=== PATIENT | female | born 1955 | race Caucasian/White ===

== ENCOUNTER 2018-11-30 10:19 | Emergency (ER) | payer MEDICARE, BC ==
[2018-11-30] MEDS ORDERED: Albuterol/Ipratropium 3.0-0.5 MG/3 ML Neb Soln NEB ONE (10:52)
--- NOTE | 2018-11-30 10:52 | EDM.PDOC ---
ED HPI GENERAL MEDICAL PROBLEM - General Chief Complaint: Respiratory Problem Stated Complaint: [facility] Time Seen by Provider: 11/30/18 10:45 Source of Information: Reports: Patient History Limitations: Reports: No Limitations - History of Present Illness INITIAL COMMENTS - FREE TEXT/NARRATIVE: 63-year-old female presents to the ED per [facility]. She reports she felt like she got a cold on Friday, November 27. The phlegm that she was bringing up was for the most part clear in turn perhaps a little bit tannish in color yesterday and little bit thicker. Slept hardly much at all last night due to dyspnea and wheezing. She has a hand-held nebulizer which helped a little. Paramedics report when they arrived on scene they found her O2 sats to be 52%. She was blue in color or generalized cyanotic. Patient has a history of COPD and continues to smoke a pack of cigarettes daily. Not have a home nebulizer does not use home oxygen therapy. On 4 L of oxygen by nasal cannula she is 83% O2 sats. Still working fairly hard to breathe. She states she got a lot better after the albuterol neb treatment at the paramedics provided. She denies any hemoptysis. She doesn't think she's ever had pneumonia before. She is aware that she has fever and chills the last 2 days. Up titrate is been very poor the last 2 days. She feels a bit more hungry now but feels like her abdomen is swollen up and bloated. Denies any diarrhea or vomiting. Onset: Gradual Onset Date: 11/27/18 (Gradually worsening dyspnea cough and shortness of breath. ) Duration: Day(s):, Constant, Getting Worse Location: Reports: Chest (Dyspnea with shortness of breath.) Quality: Reports: Other Severity: Severe (Severe shortness of breath with wheezing) Improves with: Reports: None Worsens with: Reports: Movement (Worse with movement and severe coughing jags.) Context: Reports: Other (Feels like she caught a cold 3 days ago in her chest which is made her very congested and difficulty getting her air.). Denies: Activity, Exercise, Lifting, Sick Contact, Trauma Associated Symptoms: Reports: Chest Pain, Cough (Central chest from coughing so much.), cough w sputum (Mostly clear sputum but occasionally thick and tannish in color.), Fever/Chills ( Mom says), Headaches ( the last 2 days. ), Loss of Appetite ( mild headache), Malaise, Shortness of Breath, Weakness. Denies: Confusion, Diaphoresis, Nausea/Vomiting, Rash, Seizure, Syncope Treatments STAFF OCCUPATIONAL THERAPIST: Reports: Other (see below) (None other than some over-the- counter preparations for cough and cold.) Left Chest Pain Score (Numeric/FACES): 4 - Related Data Allergies Allergy/AdvReac Type Severity Reaction Status Date / Time No Known Allergies Allergy Verified 11/30/18 10:32 Home Meds: Home Meds Celecoxib [CeleBREX] 200 mg PO BID 12/02/13 [History] DULoxetine [Cymbalta] 60 mg PO DAILY 12/02/13 [History] Montelukast [Singulair] 10 mg PO DAILY 12/02/13 [History] amLODIPine [Norvasc] 10 mg PO DAILY 12/02/13 [History] atorvaSTATin [Lipitor] 40 mg PO BEDTIME 12/02/13 [History] hydroCHLOROthiazide [Hydrochlorothiazide] 12.5 mg PO DAILY 12/02/13 [History] Albuterol [Ventolin HFA] 1 - 2 puff INH ASDIRECTED PRN 11/30/18 [History] Calcium Citrate/Vitamin D3 [Citracal + D Maximum Caplet] 1 tab PO BID 11/30/18 [ History] Multivitamin [Multiple Vitamins] 2 tab PO DAILY 11/30/18 [History] Past Medical History HEENT History: Reports: Allergic Rhinitis (Allergic conjunctivitis.), Sinusitis , Other (See Below) Cardiovascular History: Reports: High Cholesterol, Hypertension Respiratory History: Reports: Bronchitis, Recurrent, COPD Endocrine/Metabolic History: Reports: Osteoporosis Social & Family History - Tobacco Use Smoking Status *Q: Current Every Day Smoker Tobacco Use Within Last Twelve Months: Cigarettes Years of Tobacco use: 42 - Tobacco Core Measures Tobacco Use/Smoking 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 Denies: Pleuritic Chest Pain, Hemoptysis (Tennis colored sputum) Cardiovascular: Reports: Chest Pain, Blood Pressure Problem (From coughing central upper chest.), Dyspnea on Exertion (Trace edema both lower extremities) , Edema. Denies: Claudication, Lightheadedness, Orthopnea Endocrine: Reports: Fatigue GI/Abdominal: Reports: Abdominal Pain (Feels abdominally bloated. This is from aerophagia.), Decreased Appetite. Denies: Constipation, Diarrhea, Difficulty Swallowing, Distension, Flatus, Hematemesis, Hematochezia, Melena, Mucous in Stool, Nausea : Reports: Frequency Musculoskeletal: Reports: Back Pain, Joint Pain (Knee pain at times) Skin: Reports: No Symptoms Neurological: Reports: No Symptoms Psychiatric: Reports: No Symptoms Hematologic/Lymphatic: Reports: No Symptoms Immunologic: Reports: No Symptoms ED EXAM, GENERAL - Physical Exam Exam: See Below Exam Limited By: Respiratory Distress (Marked respiratory distress.) General Appearance: Alert, Moderate Distress, Other (Temperature 36.7. She feels warmer than this on palpation. Pulse is 91 and sinus respiratory is 18 sats are 83% on room air. BP is 04/04/65.) Eye Exam: Bilateral Eye: Normal Inspection Ears: Normal TMs Throat/Mouth: Normal Inspection, Normal Oropharynx, Other Head: Atraumatic (Tongue is very dry and coated.), Normocephalic Neck: Normal Inspection, Supple, Non-Tender, Full Range of Motion. No: Carotid Bruit, Lymphadenopathy (L), Lymphadenopathy (R) Respiratory/Chest: No Accessory Muscle Use, Chest Non-Tender, Respiratory Distress (Severe respiratory distress with sats of 183% on room air.), Rhonchi, Wheezing (Rhonchi throughout all lung valdovinos. Artery wheezes from both lung bases.). No: Lungs Clear, Normal Breath Sounds, Crackles, Rales Cardiovascular: Regular Rate, Rhythm, No Gallop, No Murmur, No Rub. No: No Edema Peripheral Pulses: 2+: Posterior Tibial (L), Posterior Tibial (R), Dorsalis Pedis (L), Dorsalis Pedis (R) GI/Abdominal: Distended (Bowel sounds are mildly hyperactive in all 4 quadrants. Diffusely distended and tympanitic to percussion upper abdomen compatible with aerophagia.), Abnormal Bowel Sounds, Other (Abdomen is firm to palpation as it is filled with air. Unable to palpate any obvious organomegaly.) Back Exam: Normal Inspection, Full Range of Motion. No: CVA Tenderness (L), CVA Tenderness (R) Extremities: Normal Range of Motion, Non-Tender, Pedal Edema (Trace pedal edema bilaterally.) Neurological: Alert, Oriented, CN II-XII Intact, Normal Cognition Psychiatric: Normal Affect, Normal Mood Skin Exam: Warm, Dry, Intact, Normal Color, No Rash. No: Cyanosis ED RESPIRATORY PROCEDURES - Endotracheal Intubation Time of Intubation: 14:19 ET Intubation Indication: Respiratory Failure Preparation: Suction, Balloon Tested, BVM Set Up, Difficult Airway Equip Airway Assessment: Obese, Large Tongue Pre-Oxygenation: Assisted with BVM, 100% FiO2 Anesthesia Meds: Etomidate (22 mg), Lidocaine (100 mg), Midazolam (2 mg), Succinylcholine (100 mg), Vecuronium (8 mg) Placement: Orotracheal Cords Visualized: Grade 2 Number of Attempts: 1 Confirmed By: CO2 Indicator, Bilateral Breath Sounds, Chest Xray Tube Secured By: By RT EKG INTERPRETATION EKG Date: 11/30/18 Time: 10:30 Rhythm: NSR Rate (Beats/Min): 90 Parker: Normal P-Wave: Enlarged (Left atrial hypertrophy pattern.) QRS: Other (Q waves V1 to V3 compatible with an old large anteroseptal myocardial infarction.) ST-T: Depressed (Mild ST segment depression leads 2 and aVF and V6.) QT: Prolonged (Minimally prolonged) EKG Interpretation Comments: Abnormal ECG Course - Vital Signs Last Recorded V/S: Last Vital Signs Temp 36.7 C 11/30/18 10:26 Pulse 91 11/30/18 10:26 Resp 18 11/30/18 10:26 BP 126/66 11/30/18 10:26 Pulse Ox 84 L 11/30/18 10:52 - Orders/Labs/Meds Orders: Active Orders 24 hr Category Date Time Status EKG Documentation Completion [RC] STAT Care 11/30/18 10:46 Active Oxygen Therapy [RC] ASDIRECTED Care 11/30/18 10:46 Active RASS Sedation Scale [RC] ASDIRECTED Care 11/30/18 14:29 Active RT Aerosol Therapy [RC] ASDIRECTED Care 11/30/18 10:52 Active RT BiPAP/CPAP [RC] ASDIRECTED Care 11/30/18 11:25 Active RT Ventilator, Adult [RC] ASDIRECTED Care 11/30/18 15:01 Active CULTURE BLOOD [BC] Stat Lab 11/30/18 11:35 Received CULTURE BLOOD [BC] Stat Lab 11/30/18 11:40 Received Acetaminophen [Tylenol] Med 11/30/18 13:07 Active 975 mg PO Q4H PRN Propofol [Diprivan 100 ML] 100 ml Med 11/30/18 14:30 Active IV TITRATE Sodium Chloride 0.9% [Normal Saline] 1,000 ml Med 11/30/18 11:00 Active IV ASDIRECTED Blood Culture x2 Reflex Set [OM.PC] Stat Oth 11/30/18 10:47 Ordered Desired Level of Sedation (RASS) [AST] Click To Edit Oth 11/30/18 14:29 Ordered Medication Orders Acetaminophen (Tylenol) 975 mg PO Q4H PRN PRN Reason: Pain Last Admin: 11/30/18 13:31 Dose: 975 mg Sodium Chloride (Normal Saline) 1,000 mls @ 150 mls/hr IV ASDIRECTED SAVANNA Last Admin: 11/30/18 10:59 Dose: 150 mls/hr Propofol (Diprivan 100 Ml) 100 mls @ 2.177 mls/hr IV TITRATE SAVANNA; Protocol Last Titration: 11/30/18 15:30 Dose: 15 mcg/kg/min, 6.532 mls/hr Titration: 11/30/18 15:19 Dose: 20 mcg/kg/min, 8.709 mls/hr Titration: 11/30/18 15:11 Dose: 15 mcg/kg/min, 6.532 mls/hr Titration: 11/30/18 15:06 Dose: 10 mcg/kg/min, 4.355 mls/hr Admin: 11/30/18 14:26 Dose: 5 mcg/kg/min, 2.177 mls/hr Labs: Laboratory Tests 11/30/18 11/30/18 11/30/18 Range/Units 10:45 11:19 11:19 WBC 9.01 (3.98-10.04) K/mm3 RBC 5.64 H (3.98-5.22) M/mm3 Hgb 17.4 H (11.2-15.7) gm/dl Hct 53.5 H (34.1-44.9) % MCV 94.9 H (79.4-94.8) fl MCH 30.9 (25.6-32.2) pg MCHC 32.5 (32.2-35.5) g/dl RDW Std Deviation 58.4 H (36.4-46.3) fL Plt Count 406 H (182-369) K/mm3 MPV 10.3 (9.4-12.3) fl Neutrophils % (Manual) 72 H (40-60) % Band Neutrophils % 0 (0-10) % Lymphocytes % (Manual) 18 L (20-40) % Atypical Lymphs % 0 % Monocytes % (Manual) 10 (2-10) % Eosinophils % (Manual) 0 L (0.7-5.8) % Basophils % (Manual) 0 L (0.1-1.2) Platelet Estimate Increased Polychromasia 2+ moderate Hypochromasia 1+ slight Anisocytosis 1+ slight RBC Morph Comment Not Reportable PT 11.4 (9.7-12.0) SECONDS INR 1.05 APTT 24 (22-31) SECONDS D-Dimer, Quantitative 1.34 H (0.19-0.50) mg/L Puncture Site Lt radial ABG pH 7.43 (7.35-7.45) ABG pCO2 53.5 H (35.0-45.0) mmHg ABG pO2 44.0 L (80.0-100.0) mmHg ABG HCO3 35.2 H (22.0-26.0) meq/L ABG O2 Saturation 82.6 L (96.0-97.0) % ABG Base Excess 9.1 H (-2-2.0) Yung Test Positive O2 Delivery Device Nasal cannula Oxygen Flow Rate 4.0 FiO2 0.00 L (21.00-100.00) % Tidal Volume cc PEEP cmH20 Pressure Support cmH2O Sodium (136-145) mEq/L Potassium (3.5-5.1) mEq/L Chloride (98-107) mEq/L Carbon Dioxide (21-32) mEq/L Anion Gap (5-15) BUN (7-18) mg/dL Creatinine (0.55-1.02) mg/dL Est Cr Clr Drug Dosing mL/min Estimated GFR (MDRD) (>60) mL/min BUN/Creatinine Ratio (14-18) Glucose (80-115) mg/dL Lactic Acid (0.4-2.0) mmol/L Calcium (8.5-10.1) mg/dL Magnesium (1.8-2.4) mg/dl Total Bilirubin (0.2-1.0) mg/dL AST (15-37) U/L ALT (14-59) U/L Alkaline Phosphatase (46-116) U/L CK-MB (CK-2) (0-3.6) ng/ml Troponin I (0.00-0.056) ng/mL C-Reactive Protein (<1.0) mg/dL NT-Pro-B Natriuret Pep (0-125) pg/mL Total Protein (6.4-8.2) g/dl Albumin (3.4-5.0) g/dl Globulin gm/dL Albumin/Globulin Ratio (1-2) Urine Color (Yellow) Urine Appearance (Clear) Urine pH (5.0-8.0) Ur Specific Anderson (1.005-1.030) Urine Protein (Negative) Urine Glucose (UA) (Negative) Urine Ketones (Negative) Urine Occult Blood (Negative) Urine Nitrite (Negative) Urine Bilirubin (Negative) Urine Urobilinogen (0.2-1.0) Ur Leukocyte Esterase (Negative) Urine RBC (0-5) /hpf Urine WBC (0-5) /hpf Ur Epithelial Cells (0-5) /hpf Urine Bacteria (FEW) /hpf Urine Mucus (FEW) /hpf 11/30/18 11/30/18 11/30/18 Range/Units 11:19 11:19 11:35 WBC (3.98-10.04) K/mm3 RBC (3.98-5.22) M/mm3 Hgb (11.2-15.7) gm/dl Hct (34.1-44.9) % MCV (79.4-94.8) fl MCH (25.6-32.2) pg MCHC (32.2-35.5) g/dl RDW Std Deviation (36.4-46.3) fL Plt Count (182-369) K/mm3 MPV (9.4-12.3) fl Neutrophils % (Manual) (40-60) % Band Neutrophils % (0-10) % Lymphocytes % (Manual) (20-40) % Atypical Lymphs % % Monocytes % (Manual) (2-10) % Eosinophils % (Manual) (0.7-5.8) % Basophils % (Manual) (0.1-1.2) Platelet Estimate Polychromasia Hypochromasia Anisocytosis RBC Morph Comment PT (9.7-12.0) SECONDS INR APTT (22-31) SECONDS D-Dimer, Quantitative (0.19-0.50) mg/L Puncture Site ABG pH (7.35-7.45) ABG pCO2 (35.0-45.0) mmHg ABG pO2 (80.0-100.0) mmHg ABG HCO3 (22.0-26.0) meq/L ABG O2 Saturation (96.0-97.0) % ABG Base Excess (-2-2.0) Yung Test O2 Delivery Device Oxygen Flow Rate FiO2 (21.00-100.00) % Tidal Volume cc PEEP cmH20 Pressure Support cmH2O Sodium 138 (136-145) mEq/L Potassium 3.3 L (3.5-5.1) mEq/L Chloride 96 L (98-107) mEq/L Carbon Dioxide 35 H (21-32) mEq/L Anion Gap 10.3 (5-15) BUN 24 H (7-18) mg/dL Creatinine 0.7 (0.55-1.02) mg/dL Est Cr Clr Drug Dosing 65.90 mL/min Estimated GFR (MDRD) > 60 (>60) mL/min BUN/Creatinine Ratio 34.3 H (14-18) Glucose 96 (80-115) mg/dL Lactic Acid 1.0 (0.4-2.0) mmol/L Calcium 8.4 L (8.5-10.1) mg/dL Magnesium 2.1 (1.8-2.4) mg/dl Total Bilirubin 1.1 H (0.2-1.0) mg/dL AST 22 (15-37) U/L ALT 27 (14-59) U/L Alkaline Phosphatase 145 H (46-116) U/L CK-MB (CK-2) 1.3 (0-3.6) ng/ml Troponin I 0.022 (0.00-0.056) ng/mL C-Reactive Protein 14.2 H* (<1.0) mg/dL NT-Pro-B Natriuret Pep 2620 H (0-125) pg/mL Total Protein 6.9 (6.4-8.2) g/dl Albumin 3.0 L (3.4-5.0) g/dl Globulin 3.9 gm/dL Albumin/Globulin Ratio 0.8 L (1-2) Urine Color (Yellow) Urine Appearance (Clear) Urine pH (5.0-8.0) Ur Specific Anderson (1.005-1.030) Urine Protein (Negative) Urine Glucose (UA) (Negative) Urine Ketones (Negative) Urine Occult Blood (Negative) Urine Nitrite (Negative) Urine Bilirubin (Negative) Urine Urobilinogen (0.2-1.0) Ur Leukocyte Esterase (Negative) Urine RBC (0-5) /hpf Urine WBC (0-5) /hpf Ur Epithelial Cells (0-5) /hpf Urine Bacteria (FEW) /hpf Urine Mucus (FEW) /hpf 11/30/18 11/30/18 11/30/18 Range/Units 12:35 12:59 15:14 WBC (3.98-10.04) K/mm3 RBC (3.98-5.22) M/mm3 Hgb (11.2-15.7) gm/dl Hct (34.1-44.9) % MCV (79.4-94.8) fl MCH (25.6-32.2) pg MCHC (32.2-35.5) g/dl RDW Std Deviation (36.4-46.3) fL Plt Count (182-369) K/mm3 MPV (9.4-12.3) fl Neutrophils % (Manual) (40-60) % Band Neutrophils % (0-10) % Lymphocytes % (Manual) (20-40) % Atypical Lymphs % % Monocytes % (Manual) (2-10) % Eosinophils % (Manual) (0.7-5.8) % Basophils % (Manual) (0.1-1.2) Platelet Estimate Polychromasia Hypochromasia Anisocytosis RBC Morph Comment PT (9.7-12.0) SECONDS INR APTT (22-31) SECONDS D-Dimer, Quantitative (0.19-0.50) mg/L Puncture Site Lt radial Lt radial ABG pH 7.48 H 7.50 H (7.35-7.45) ABG pCO2 48.1 H 47.4 H (35.0-45.0) mmHg ABG pO2 52.0 L 63.0 L (80.0-100.0) mmHg ABG HCO3 35.2 H 36.3 H (22.0-26.0) meq/L ABG O2 Saturation 89.6 L 94.7 L (96.0-97.0) % ABG Base Excess 10.0 H 11.2 H (-2-2.0) Yung Test Positive O2 Delivery Device Bipap Ventilator Oxygen Flow Rate 7.0 FiO2 0.00 L 0.00 L (21.00-100.00) % Tidal Volume 500.0 cc PEEP 7.0 12.0 cmH20 Pressure Support 12.0 0.0 cmH2O Sodium (136-145) mEq/L Potassium (3.5-5.1) mEq/L Chloride (98-107) mEq/L Carbon Dioxide (21-32) mEq/L Anion Gap (5-15) BUN (7-18) mg/dL Creatinine (0.55-1.02) mg/dL Est Cr Clr Drug Dosing mL/min Estimated GFR (MDRD) (>60) mL/min BUN/Creatinine Ratio (14-18) Glucose (80-115) mg/dL Lactic Acid (0.4-2.0) mmol/L Calcium (8.5-10.1) mg/dL Magnesium (1.8-2.4) mg/dl Total Bilirubin (0.2-1.0) mg/dL AST (15-37) U/L ALT (14-59) U/L Alkaline Phosphatase (46-116) U/L CK-MB (CK-2) (0-3.6) ng/ml Troponin I (0.00-0.056) ng/mL C-Reactive Protein (<1.0) mg/dL NT-Pro-B Natriuret Pep (0-125) pg/mL Total Protein (6.4-8.2) g/dl Albumin (3.4-5.0) g/dl Globulin gm/dL Albumin/Globulin Ratio (1-2) Urine Color Yellow (Yellow) Urine Appearance Clear (Clear) Urine pH 7.5 (5.0-8.0) Ur Specific Anderson 1.020 (1.005-1.030) Urine Protein Trace H (Negative) Urine Glucose (UA) Negative (Negative) Urine Ketones Negative (Negative) Urine Occult Blood Negative (Negative) Urine Nitrite Negative (Negative) Urine Bilirubin Negative (Negative) Urine Urobilinogen 4.0 H (0.2-1.0) Ur Leukocyte Esterase Negative (Negative) Urine RBC Not seen (0-5) /hpf Urine WBC 0-5 (0-5) /hpf Ur Epithelial Cells 0-5 (0-5) /hpf Urine Bacteria Rare (FEW) /hpf Urine Mucus Few (FEW) /hpf Meds: Medications Generic Name Dose Route Start Last Admin Trade Name Sally PRN Reason Stop Dose Admin Acetaminophen 975 mg 11/30/18 13:07 11/30/18 13:31 Tylenol PO 975 mg Q4H PRN Administration Pain Sodium Chloride 1,000 mls @ 150 mls/hr 11/30/18 11:00 11/30/18 10:59 Normal Saline IV 150 mls/hr ASDIRECTED SAVANNA Administration Propofol 100 mls @ 2.177 mls/hr 11/30/18 14:30 11/30/18 15:30 Diprivan 100 Ml IV 15 mcg/kg/min TITRATE SAVANNA 6.532 mls/hr Titration Protocol 5 MCG/KG/MIN Discontinued Medications Generic Name Dose Route Start Last Admin Trade Name Sally PRN Reason Stop Dose Admin Albuterol/Ipratropium 3 ml 11/30/18 10:52 11/30/18 11:11 Duoneb 3.0-0.5 Mg/3 Ml NEB 11/30/18 10:53 3 ml ONETIME ONE Administration Etomidate 22 mg 11/30/18 13:57 11/30/18 14:17 Amidate IVPUSH 11/30/18 13:58 22 mg ONETIME ONE Administration Furosemide 60 mg 11/30/18 11:51 11/30/18 12:17 Lasix IVPUSH 11/30/18 11:52 60 mg NOW ONE Administration Levofloxacin/Dextrose 750 mg/ 150 mls @ 100 mls/hr 11/30/18 13:09 11/30/18 13 :19 Premix IV 11/30/18 14:38 100 mls/hr ONETIME ONE Administration Meropenem 1 gm/ Sodium 100 mls @ 200 mls/hr 11/30/18 13:51 11/30/18 15:29 Chloride IV 11/30/18 14:20 Not Given ONETIME ONE Propofol Confirm 11/30/18 14:24 11/30/18 14:57 Diprivan 100 Ml Administered 11/30/18 14:25 Not Given Dose 100 mls @ as directed .ROUTE .STK-MED ONE Meropenem 1 gm/ Sodium 100 mls @ 200 mls/hr 11/30/18 15:15 11/30/18 15:25 Chloride IV 11/30/18 15:44 200 mls/hr ONETIME ONE Administration Lidocaine HCl 100 mg 11/30/18 13:59 11/30/18 14:15 Xylocaine 2% IVPUSH 11/30/18 14:00 100 mg ONETIME ONE Administration Lidocaine HCl Confirm 11/30/18 14:03 11/30/18 14:57 Xylocaine 2% Administered 11/30/18 14:04 Not Given Dose 100 mg .ROUTE .STK-MED ONE Meropenem Confirm 11/30/18 15:05 11/30/18 15:30 Merrem Administered 11/30/18 15:06 Not Given Dose 1 gm .ROUTE .STK-MED ONE Midazolam HCl 2 mg 11/30/18 13:58 11/30/18 14:14 Versed 1 Mg/Ml IVPUSH 11/30/18 13:59 2 mg ONETIME ONE Administration Succinylcholine Chloride 100 mg 11/30/18 14:00 11/30/18 14:17 Succinylcholine In Ns Pf IV 11/30/18 14:01 100 mg ONETIME ONE Administration - Radiology Interpretation Free Text/Narrative:: 63-year-old female presents to the ED per ambulance from home. She reports when she caught a cold 3 days ago with increasing shortness of breath and wheezing and cough over the last 3 days. She couldn't sleep at all last night due to cough. When paramedics arrived they found that she her O2 sats only 52% on room air and reported that she was very dark blue in color. She improved with an albuterol inhaler and oxygen at 4 L/m with a sat of 83%. She states she' s never had pneumonia. She has fever and chills over the weekend. Sputum is tannish in color. No hemoptysis. Has had very poor oral intake the last 2 days due to fever and aerophagia with bloat and unable to eat. Plan she clinically is in respiratory failure. ABGs to be done immediately to see if she is a retainer. Is likely going to need a trial of BiPAP. Septic workup and chest x- ray of course to be done including cardiac markers. We'll give her Jose bassett treatment as well. - Re-Assessments/Exams Free Text/Narrative Re-Assessment/Exam: 11/30/18 11:50 chest x-ray reveals marked cardiomegaly and suspicion of diffuse vascular congestion. The left cardiac border abuts the left costal margin. No definitive pneumonia is identified. She is tolerating BiPAP well started with pressures of 10/5 however she is achieving sats only 88%. FiO2 I believe was 40%. 11/30/18 11:53 Total white count is 9.01 with differential pending. Hemoglobin is elevated at 17.4 with hematocrit of 53.5 indicating significant renal concentration and thus likely volume depletion. Reticulocyte count is 406,000. ABGs revealed a pH of 7.43 with CO2 retention of 53.5 CO2 of 44 and a saturation of 82.6% which correlated with ours at 4 L of oxygen per minute per nasal cannula. 11/30/18 12:19 Bi-Pap pressures were increased to 12.5 over 7.5. This achieved O2 sats of 91% which is probably her norm. Differential on the white count is 72 % neutrophils and no band cells. 18% lymphocytes. PT is 11.4 with an INR 1.05. PTT is 24. D-dimer is elevated at 1.34 chemistry is still pending.. 11/30/18 13:01 Sodium is 138. Potassium slightly low at 3.3. Cord is 96 with a bicarbonate 35 i.e. she is a CO2 retainer. Anion gap is 10.3 with a BUN of 24. Creatinine is 0.7. Estimate a GFR is greater than 60. Glucose is 96 with a lactic acid of 1.0. Calcium is 8.4 to magnesium of 2.1. Bilirubin is 1.1. AST is 22 ALT is 27. Alk phosphatase is 145. CK-MB fraction is 1.3. Troponin 0.022. C-reactive protein is markedly elevated at 14.2. BNP is elevated at 2620. Total protein is 6.9. Albumin fraction is 3.0. Urinalysis shows 4+ urobilinogen but no signs of infection. I will have them come into a second ABG at this point time. It's been about a half an hour since we increased her pressures. Since her CRP is 14.3 she obviously has an underlying infective process and she clinically is febrile. She most likely has a pneumonia. We'll start her on Levaquin 750 mg IV. Will give Tylenol 975 mg for fever relief. The plan will be to send her to [place] for definitive care. She has records at [facility] in [place]. It appears that her elevated d-dimer is secondary to combination of an infective process and mild CHF. 11/30/18 13:28 Second set of blood gases done on BiPAP showed a pH of 7.48 with a PCO2 of 48.1 and a PaO2 of 52 with O2 sats of 89.6%. This is on 7 L/m of oxygen flow people 7. pressure support of 12. Pressure settings will not be changed this time. 11/30/18 13:45: Spoke with --perioperative assistant at [facility] in [facility]. He suggest that we intubate this patient prior to sending her down the road. Also starting her on meropenem 1 g IV to cover for pneumonia. This is in addition to the Levaquin 750 IV. I discussed this with the patient. She is very anxious and upset about being intubated. Going to discuss it with her children at this time. 11/30/18 14:54 patient was intubated at 1419 hrs. Initial vent settings would not achieve O2 sats greater than 90%. Tidal volume has been set at 500. X-ray rate of 16. FiO2 started at 50 and gradually titrated up to 85 to achieve O2 sats of 95%. PCO2 is 38. PEEP has been gradually increased from 5-12. Us to x- ray done post insertion of nasogastric tube and ET tube shows adequate position of the ET tube below the clavicles but the good 3 cm above the ivelisse. NG tube does travel below the diaphragm into the stomach. There is now much more evidence of a pneumonia along the right upper perihilar area and possibly right lower lobe as well. Awaiting ground transport per ambulance. 11/30/18 15:20: ABGs done now do not correlate very well with the PCO2 on the monitor. C2 on the monitors 33-35 in the PCO2 by blood gas recording is 47.4 with a pH of 7.50. PO2 was 63. When I look at this sampling it is most likely a venous sample instead of an arterial sample. At any rate no ischemic change was increased respiratory rate from 16-22 blow off more PCO2 and increase by mouth 2. The monitor revealed that her saturations were 95-96% which is usually been very accurate. Departure - Departure Time of Disposition: 16:10 Disposition: DC/Tfer to Acute Hospital 02 Condition: Serious Clinical Impression: Acute febrile illness, Respiratory failure requiring intubation Pneumonia Qualifiers: Pneumonia type: due to unspecified organism Laterality: right Lung location: lower lobe of lung Qualified Code(s): J18.1 - Lobar pneumonia, unspecified organism COPD (chronic obstructive pulmonary disease) Qualifiers: COPD type: emphysema Emphysema type: panlobular Qualified Code(s): J43.1 - Panlobular emphysema - Discharge Information *PRESCRIPTION DRUG MONITORING PROGRAM REVIEWED*: Not Applicable *COPY OF PRESCRIPTION DRUG MONITORING REPORT IN PATIENT [place]: Not Applicable Referrals: Bonnie Harper MD [Primary Care Provider] - Forms: ED Department Discharge Additional Instructions: Due to failure to improve her blood gases substantially with BiPAP she remained hypercapneic and hypoxic. She remained in respiratory failure. 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 Patient will be sent to intensive care unit at [facility] in [facility] with Dr. Cadet accepting care - My Orders Last 24 Hours: My Active Orders 11/30/18 10:46 EKG Documentation Completion [RC] STAT Oxygen Therapy [RC] ASDIRECTED 11/30/18 10:47 Blood Culture x2 Reflex Set [OM.PC] Stat 11/30/18 10:52 RT Aerosol Therapy [RC] ASDIRECTED 11/30/18 11:00 Sodium Chloride 0.9% [Normal Saline] 1,000 ml IV ASDIRECTED 11/30/18 11:25 RT BiPAP/CPAP [RC] ASDIRECTED 11/30/18 11:35 CULTURE BLOOD [BC] Stat 11/30/18 11:40 CULTURE BLOOD [BC] Stat 11/30/18 13:07 Acetaminophen [Tylenol] 975 mg PO Q4H PRN 11/30/18 14:29 RASS Sedation Scale [RC] ASDIRECTED Desired Level of Sedation (RASS) [AST] Click To Edit 11/30/18 14:30 Propofol [Diprivan 100 ML] 100 ml IV TITRATE 11/30/18 15:01 RT Ventilator, Adult [RC] ASDIRECTED - Assessment/Plan Last 24 Hours: My Active Orders 11/30/18 10:46 EKG Documentation Completion [RC] STAT Oxygen Therapy [RC] ASDIRECTED 11/30/18 10:47 Blood Culture x2 Reflex Set [OM.PC] Stat 11/30/18 10:52 RT Aerosol Therapy [RC] ASDIRECTED 11/30/18 11:00 Sodium Chloride 0.9% [Normal Saline] 1,000 ml IV ASDIRECTED 11/30/18 11:25 RT BiPAP/CPAP [RC] ASDIRECTED 11/30/18 11:35 CULTURE BLOOD [BC] Stat 11/30/18 11:40 CULTURE BLOOD [BC] Stat 11/30/18 13:07 Acetaminophen [Tylenol] 975 mg PO Q4H PRN 11/30/18 14:29 RASS Sedation Scale [RC] ASDIRECTED Desired Level of Sedation (RASS) [AST] Click To Edit 11/30/18 14:30 Propofol [Diprivan 100 ML] 100 ml IV TITRATE 11/30/18 15:01 RT Ventilator, Adult [RC] ASDIRECTED
[2018-11-30] MEDS ORDERED: Sodium Chloride 0.9% 1,000 ML IV SCH (11:00)
[2018-11-30] MEDS ORDERED: Furosemide 40 MG/4 ML VIAL IVPUSH ONE (11:51)
--- NOTE | 2018-11-30 13:04 | CR ---
Chest: Portable view of the chest was obtained. Comparison: No prior chest imaging. Heart is enlarged. Pulmonary vessels are mildly congested. Left retrocardiac region not penetrated. Previous cervical spine surgery is noted. Impression: 1. Cardiomegaly and mild pulmonary vascular congestion. Diagnostic code #3
[2018-11-30] MEDS ORDERED: Acetaminophen 325 MG Tab PO PRN (13:07)
[2018-11-30] MEDS ORDERED: Levofloxacin/Dextrose 5%-Water 750 MG in Premix Bag 1 BAG IV ONE (13:09)
[2018-11-30] MEDS ORDERED: Meropenem 1 GM in Sodium Chloride 0.9% 100 ML IV ONE ×2 (13:51→15:15)
[2018-11-30] MEDS ORDERED: Etomidate 2 MG/ML 20 ML SDV IVPUSH ONE (13:57)
[2018-11-30] MEDS ORDERED: Midazolam 1 MG/ML 2 ML SDV IVPUSH ONE (13:58)
[2018-11-30] MEDS ORDERED: Lidocaine 2% 100 MG/5 ML Syringe IVPUSH ONE (13:59)
[2018-11-30] MEDS ORDERED: Succinylcholine/Normal Saline 100 MG/5 ML Syringe IV ONE (14:00)
[2018-11-30] MEDS ORDERED: Lidocaine 2% 100 MG/5 ML Syringe ONE (14:03)
[2018-11-30] MEDS ORDERED: Meropenem 1 GM SDV ONE (15:05)
--- NOTE | 2018-11-30 15:43 | CR ---
Chest: Frontal view of the chest was obtained. Comparison: Previous chest x-ray performed earlier on same day (10:56 AM). Endotracheal tube is seen. Tip lies slightly below the level of the inferior clavicles and above the ivelisse in satisfactory position. Nasogastric tube courses off the inferior film into the stomach. Heart is enlarged. Pulmonary vessels are mildly congested. Questionable increased density behind the left heart is now seen which could represent pleural effusion as well as atelectasis or even pneumonia. Impression: 1. Satisfactory position of tubes and catheters. 2. Cardiomegaly and mild pulmonary vascular congestion. 3. Questionable increased density now seen behind the left heart, as mentioned above this could represent pleural effusion as well as atelectasis or even pneumonia. Diagnostic code #3
== END 2018-11-30 15:45 ==
LOC: JD.ED 10:19
DX: J96.90 Respiratory failure, unspecified, unspecified whether with hypoxia or hypercapnia (principal); J18.1 Lobar pneumonia, unspecified organism; J43.1 Panlobular emphysema; I10 Essential (primary) hypertension; F17.210 Nicotine dependence, cigarettes, uncomplicated; Z79.899 Other long term (current) drug therapy; Z79.51 Long term (current) use of inhaled steroids
CPT/HCPCS: 31500; 36415; 36600; 51702; 71045; 80053; 81001; 82553; 82803; 83605; 83735; 83880; 84484; 85007; 85027; 85379; 85610; 85730; 86140; 87040; 93005; 94640; 94660; 96361; 96365; 96366; 96367; 96368; 96375; 96376; 99291; A9270; J0330; J1940; J1956; J2001; J2185; J2250; J2704; J3490; J7030; J7040; 93010; 99285; J7620-GY

== ENCOUNTER 2022-04-04 00:43 | Emergency (ER) | payer MEDICARE, OTHER ==
[2022-04-04] MEDS ORDERED: Sodium Chloride 0.9% 10 ML Syringe FLUSH PRN (01:07)
[2022-04-04] MEDS ORDERED: Albuterol/Ipratropium 3.0-0.5 MG/3 ML Neb Soln NEB ONE ×2 (01:09→03:33)
[2022-04-04] MEDS ORDERED: Ketorolac 15 MG/ML SDV IVPUSH ONE (01:09)
[2022-04-04] MEDS ORDERED: methylPREDNISolone Sodium Succinate 125 MG/2 ML SDV IVPUSH ONE (01:09)
[2022-04-04] MEDS ORDERED: HYDROmorphone 0.5 MG/0.5 ML Syringe IVPUSH ONE ×2 (01:10→04:04)
== END 2022-04-04 04:35 | disposition home or self-care (01) ==
LOC: JD.ED 00:43
DX: M54.2 Cervicalgia (principal); J44.1 Chronic obstructive pulmonary disease with (acute) exacerbation; I10 Essential (primary) hypertension; E78.00 Pure hypercholesterolemia, unspecified; Z87.891 Personal history of nicotine dependence; Z79.899 Other long term (current) drug therapy
CPT/HCPCS: 36415; 70450; 71045; 72125; 80053; 85025; 86140; 94640; 96374; 96375; 96376; 99284; J1170; J1885; J2930; J3360; J3490; J7620-GY

== ENCOUNTER 2022-12-20 09:10 | Emergency (ER) | payer MEDICARE, OTHER ==
[2022-12-20] MEDS ORDERED: Metoclopramide 10 MG/2 ML SDV IVPUSH ONE ×2 (09:33→15:30)
[2022-12-20] MEDS ORDERED: diphenhydrAMINE 50 MG/ML SDV IVPUSH ONE ×2 (09:34→15:31)
[2022-12-20] MEDS ORDERED: HYDROmorphone 0.5 MG/0.5 ML Syringe IVPUSH ONE ×3 (09:34→13:11)
[2022-12-20] MEDS ORDERED: Dextrose 5%-0.9% NaCl 1,000 ML IV SCH (09:45)
[2022-12-20 10:29] LABS: APPEARANCE,URINE SLT CLOUDY (Clear); BILIRUBIN,URINE 1+ (Negative); COLOR,URINE AMBER (Yellow); GLUCOSE,URINE NEGATIVE (Negative); KETONES,URINE 1+ (Negative); LEUKOCYTE ESTERASE,URINE NEGATIVE (Negative); NITRITE,URINE NEGATIVE (Negative); OCCULT BLOOD,URINE TRACE-INTACT (Negative); PH,URINE 5.5 (5.0-8.0); PROTEIN,URINE 3+ (Negative); UROBILINOGEN,URINE 0.2 (0.2-1.0)
[2022-12-20 10:42] LABS: BASOPHILS ABSOLUTE AUTO 0.1 K/mm3 (0.0-0.2); BASOPHILS PERCENT AUTO 0.4 % (0.0-1.0); EOSINOPHILS PERCENT AUTO 0.2 % (0.0-6.0); HEMATOCRIT 46.1 % (37.0-47.0); HEMOGLOBIN 15.4 gm/dl (12.0-16.0); IMMATURE GRAN ABSOLUTE AUTO 0.18 K/mm3 (0.00-0.05); IMMATURE GRAN PERCENT AUTO 1.1 % (0.0-0.4); LYMPHOCYTES PERCENT AUTO 5.8 % (24.0-44.0); MEAN CORPUSCULAR HEMOGLOBIN 29.8 pg (28.0-32.0); MEAN CORPUSCULAR HGB CONC 33.4 g/dl (32.0-36.0); MEAN CORPUSCULAR VOLUME 89.2 fl (83.0-99.0); MEAN PLATELET VOLUME 10.6 fl (9.4-12.3); MONOCYTES ABSOLUTE AUTO 0.4 K/mm3 (0.0-0.8); MONOCYTES PERCENT AUTO 2.3 % (0.0-8.0); NEUTROPHILS ABSOLUTE AUTO 15.2 K/mm3 (1.8-7.7); NEUTROPHILS PERCENT AUTO 90.2 % (41.0-71.0); PLATELET COUNT,PLT 374 K/mm3 (150-400); RED BLOOD CELL COUNT 5.17 M/mm3 (4.10-5.30); WHITE BLOOD CELL COUNT,WBC 16.85 K/mm3 (3.9-11.3)
[2022-12-20 11:06] LABS: A/G RATIO 0.8 (1-2); ALBUMIN 3.4 g/dl (3.4-5.0); ANION GAP 15.4 (5-15); BILIRUBIN TOTAL 0.6 mg/dL (0.2-1.0); C-REACTIVE PROTEIN 2.7 mg/dL (<1.0); CALCIUM 9.3 mg/dL (8.5-10.1); CREATININE 0.8 mg/dL (0.55-1.02); EST CRCL DRUG DOSING (CG) 54.71 mL/min; MAGNESIUM 1.7 mg/dL (1.8-2.4); POTASSIUM,K 3.4 mEq/L (3.5-5.1); PROTEIN TOTAL,TP 7.6 g/dl (6.4-8.2)
[2022-12-20 11:17] LABS: INR 0.95; PROTHROMBIN TIME 10.2 SECONDS (9.7-12.0)
[2022-12-20 11:18] LABS: PTT,PARTIAL THROMBOPLSTIN TIME 25.1 SECONDS (21.7-31.4)
[2022-12-20 11:23] LABS: BACTERIA,URINE MODERATE /hpf (FEW); HYALINE CASTS,URINE 20-30 /lpf (0-5); MUCUS,URINE MANY /hpf (FEW); SQUAMOUS EPITHELIAL CELLS,UR 0-5 /hpf (0-5); WBC,URINE 0-5 /hpf (0-5)
[2022-12-20] MEDS ORDERED: Sodium Chloride 0.9% 10 ML Syringe FLUSH PRN (11:56)
[2022-12-20] MEDS ORDERED: Iopamidol 612 MG/ML 100 ML Bottle IVPUSH ONE (11:56)
[2022-12-20] MEDS ORDERED: Levofloxacin/Dextrose 5%-Water 750 MG in Premix Bag 1 BAG IV ONE (13:10)
[2022-12-20] MEDS ORDERED: metroNIDAZOLE/Normal Saline 500 MG in Premix Bag 1 BAG IV ONE (13:11)
[2022-12-20] MEDS ORDERED: Dextrose 5%-Lactated Ringers 1,000 ML IV SCH (14:00)
[2022-12-20 14:44] LABS: SLIDE REVIEW ABNORMAL SMEAR
[2022-12-20] MEDS ORDERED: Polyethylene Glycol 3350 Powder 17 GM Packet PO ONE (15:31)
== END 2022-12-20 16:52 | disposition home or self-care (01) ==
LOC: JD.ED 09:10
DX: K52.9 Noninfective gastroenteritis and colitis, unspecified (principal); D72.829 Elevated white blood cell count, unspecified; E78.00 Pure hypercholesterolemia, unspecified; I10 Essential (primary) hypertension; J44.9 Chronic obstructive pulmonary disease, unspecified; Z86.16 Personal history of COVID-19; Z79.899 Other long term (current) drug therapy
CPT/HCPCS: 36415; 74177; 76705; 80053; 80307; 81001; 82009; 82977; 83605; 83690; 83735; 83880; 85025; 85610; 85730; 86140; 87040; 96361; 96365; 96366; 96368; 96375; 96376; 99284; A9270; J1170; J1200; J1956; J2765; J3490; J7042; J7121; Q9967

== ENCOUNTER 2023-01-15 17:24 | Inpatient (IN) | payer MEDICARE, OTHER ==
[2023-01-15] MEDS ORDERED: Sodium Chloride 0.9% 1,000 ML IV STA (18:09)
[2023-01-15] MEDS ORDERED: Sodium Chloride 0.9% 10 ML Syringe FLUSH PRN (18:09)
[2023-01-15] MEDS ORDERED: Metoclopramide 10 MG/2 ML SDV IVPUSH ONE (18:09)
[2023-01-15] MEDS ORDERED: HYDROmorphone 0.5 MG/0.5 ML Syringe IVPUSH ONE ×2 (18:11→20:12)
[2023-01-15] MEDS ORDERED: Sodium Chloride 0.9% 10 ML Syringe FLUSH ONE (18:17)
[2023-01-15] MEDS ORDERED: Iopamidol 612 MG/ML 100 ML Bottle IVPUSH ONE (18:17)
[2023-01-15 18:19] LABS: BASOPHILS ABSOLUTE AUTO 0.1 K/mm3 (0.0-0.2); BASOPHILS PERCENT AUTO 0.4 % (0.0-1.0); EOSINOPHILS PERCENT AUTO 0.1 % (0.0-6.0); HEMATOCRIT 47.5 % (37.0-47.0); HEMOGLOBIN 16.2 gm/dl (12.0-16.0); IMMATURE GRAN ABSOLUTE AUTO 0.16 K/mm3 (0.00-0.05); IMMATURE GRAN PERCENT AUTO 1.1 % (0.0-0.4); LYMPHOCYTES PERCENT AUTO 13.3 % (24.0-44.0); MEAN CORPUSCULAR HEMOGLOBIN 29.3 pg (28.0-32.0); MEAN CORPUSCULAR HGB CONC 34.1 g/dl (32.0-36.0); MEAN CORPUSCULAR VOLUME 86.1 fl (83.0-99.0); MEAN PLATELET VOLUME 9.8 fl (9.4-12.3); MONOCYTES ABSOLUTE AUTO 0.7 K/mm3 (0.0-0.8); MONOCYTES PERCENT AUTO 4.4 % (0.0-8.0); NEUTROPHILS ABSOLUTE AUTO 12.1 K/mm3 (1.8-7.7); NEUTROPHILS PERCENT AUTO 80.7 % (41.0-71.0); PLATELET COUNT,PLT 503 K/mm3 (150-400); RED BLOOD CELL COUNT 5.52 M/mm3 (4.10-5.30); WHITE BLOOD CELL COUNT,WBC 15.03 K/mm3 (3.9-11.3)
[2023-01-15 18:45] LABS: ALBUMIN 4.2 g/dl (3.4-5.0); ANION GAP 18.3 (5-15); BILIRUBIN TOTAL 0.9 mg/dL (0.2-1.0); BUN/CREATININE RATIO 17.5 (14-18); CALCIUM 10.8 mg/dL (8.5-10.1); CREATININE 0.8 mg/dL (0.55-1.02); EST CRCL DRUG DOSING (CG) 54.71 mL/min; POTASSIUM,K 3.3 mEq/L (3.5-5.1); PROTEIN TOTAL,TP 8.3 g/dl (6.4-8.2)
[2023-01-15 20:05] LABS: APPEARANCE,URINE CLEAR (Clear); BILIRUBIN,URINE NEGATIVE (Negative); COLOR,URINE YELLOW (Yellow); GLUCOSE,URINE NEGATIVE (Negative); KETONES,URINE 1+ (Negative); LEUKOCYTE ESTERASE,URINE NEGATIVE (Negative); NITRITE,URINE NEGATIVE (Negative); OCCULT BLOOD,URINE NEGATIVE (Negative); PH,URINE 8.5 (5.0-8.0); PROTEIN,URINE 1+ (Negative); UROBILINOGEN,URINE 0.2 (0.2-1.0)
[2023-01-15] MEDS ORDERED: Ondansetron 4 MG/2 ML SDV IVPUSH ONE (20:06)
[2023-01-15] MEDS ORDERED: Naloxone 0.4 MG/ML SDV IVPUSH PRN (20:12)
[2023-01-15 20:47] LABS: RBC,URINE 0-5 /hpf (0-5)
[2023-01-15 21:05] LABS: BACTERIA,URINE FEW /hpf (FEW); SQUAMOUS EPITHELIAL CELLS,UR 0-5 /hpf (0-5)
[2023-01-15 21:06] LABS: MUCUS,URINE FEW /hpf (FEW)
[2023-01-15] MEDS ORDERED: Sucralfate 1 GM Tab PO ONE (21:18)
[2023-01-15] MEDS ORDERED: Sucralfate Suspension 1 GM/10 ML Cup ONE (23:06)
[2023-01-15] MEDS ORDERED: Sucralfate Suspension 1 GM/10 ML Cup PO ONE (23:07)
[2023-01-15] MEDS ORDERED: Famotidine 20 MG/2 ML SDV IVPUSH SCH (23:15)
[2023-01-16] MEDS ORDERED: Ketorolac 30 MG/ML SDV IVPUSH ONE (00:48)
[2023-01-16] MEDS ORDERED: Metoclopramide 10 MG/2 ML SDV IVPUSH ONE (00:49)
[2023-01-16] MEDS ORDERED: Ondansetron 4 MG in Sodium Chloride 0.9% 50 ML IV ONE (00:50)
[2023-01-16] MEDS ORDERED: Ondansetron 4 MG/2 ML SDV IVPUSH ONE (01:00)
[2023-01-16] MEDS: Vancomycin 125 MG Cap PO SCH ×3 (01:15→21:12)
[2023-01-16] MEDS ORDERED: D5 1/2 NS w/ 20 mEq/L KCl 1,000 ML IV ONE (01:50)
[2023-01-16] MEDS ORDERED: Acetaminophen 325 MG Tab PO PRN (01:53)
[2023-01-16] MEDS ORDERED: Sucralfate Suspension 1 GM/10 ML Cup PO PRN (01:54)
[2023-01-16] MEDS ORDERED: Metoclopramide 5 MG Tab PO PRN (01:54)
[2023-01-16] MEDS ORDERED: Ondansetron 4 MG Tab.DIS PO PRN (01:56)
[2023-01-16] MEDS ORDERED: Famotidine 20 MG/2 ML SDV IVPUSH SCH ×2 (02:00→21:00)
[2023-01-16] MEDS: Acetaminophen/oxyCODONE 325-5 MG Tab PO PRN ×4 (05:02→21:15)
[2023-01-16 06:27] LABS: BASOPHILS PERCENT AUTO 0.3 % (0.0-1.0); EOSINOPHILS ABSOLUTE AUTO 0.1 K/mm3 (0.0-0.4); EOSINOPHILS PERCENT AUTO 0.6 % (0.0-6.0); HEMATOCRIT 47.2 % (37.0-47.0); HEMOGLOBIN 15.4 gm/dl (12.0-16.0); IMMATURE GRAN ABSOLUTE AUTO 0.16 K/mm3 (0.00-0.05); LYMPHOCYTES PERCENT AUTO 6.6 % (24.0-44.0); MEAN CORPUSCULAR HEMOGLOBIN 28.4 pg (28.0-32.0); MEAN CORPUSCULAR HGB CONC 32.6 g/dl (32.0-36.0); MEAN CORPUSCULAR VOLUME 86.9 fl (83.0-99.0); MEAN PLATELET VOLUME 10.1 fl (9.4-12.3); MONOCYTES ABSOLUTE AUTO 1.5 K/mm3 (0.0-0.8); MONOCYTES PERCENT AUTO 9.5 % (0.0-8.0); NEUTROPHILS ABSOLUTE AUTO 12.7 K/mm3 (1.8-7.7); PLATELET COUNT,PLT 430 K/mm3 (150-400); RED BLOOD CELL COUNT 5.43 M/mm3 (4.10-5.30); WHITE BLOOD CELL COUNT,WBC 15.52 K/mm3 (3.9-11.3)
[2023-01-16 06:48] LABS: A/G RATIO 0.9 (1-2); ALBUMIN 3.7 g/dl (3.4-5.0); ANION GAP 15.5 (5-15); BILIRUBIN TOTAL 0.7 mg/dL (0.2-1.0); BUN/CREATININE RATIO 11.4 (14-18); CALCIUM 9.5 mg/dL (8.5-10.1); CREATININE 0.7 mg/dL (0.55-1.02); EST CRCL DRUG DOSING (CG) 62.53 mL/min; POTASSIUM,K 3.5 mEq/L (3.5-5.1); PROTEIN TOTAL,TP 7.9 g/dl (6.4-8.2)
[2023-01-16] MEDS ORDERED: Sucralfate 1 GM Tab PO PRN (09:51)
[2023-01-16] MEDS: Famotidine 20 MG/2 ML SDV IVPUSH SCH (10:19)
[2023-01-16] MEDS ORDERED: ONDANSETRON 4 MG BUCCAL PRN (10:23)
[2023-01-16] MEDS ORDERED: Vancomycin 250 MG Cap PO SCH ×2 (10:30→12:00)
[2023-01-16] MEDS ORDERED: metroNIDAZOLE 500 MG Tab PO SCH (10:30)
[2023-01-16] MEDS: metroNIDAZOLE 500 MG Tab PO SCH ×2 (12:13→21:12)
[2023-01-16] MEDS ORDERED: Dextrose 5%-0.45% NaCl 1,000 ML IV ONE (13:00)
[2023-01-16] MEDS ORDERED: Dextrose 5%-0.45% NaCl 1,000 ML IV SCH (13:00)
[2023-01-16] MEDS ORDERED: Magnesium Hydroxide 400 MG/5 ML Susp 30 ML Cup PO ONE (17:40)
[2023-01-16] MEDS: atorvaSTATin 20 MG Tab PO SCH (21:12)
[2023-01-17] MEDS: Famotidine 20 MG/2 ML SDV IVPUSH SCH ×3 (00:53→22:01)
[2023-01-17] MEDS: metroNIDAZOLE 500 MG Tab PO SCH ×3 (04:33→22:09)
[2023-01-17] MEDS: D5 1/2 NS w/ 20 mEq/L KCl 1,000 ML IV SCH ×2 (04:34→18:49)
[2023-01-17 05:42] LABS: BASOPHILS PERCENT AUTO 0.5 % (0.0-1.0); EOSINOPHILS ABSOLUTE AUTO 0.1 K/mm3 (0.0-0.4); EOSINOPHILS PERCENT AUTO 1.1 % (0.0-6.0); HEMATOCRIT 44.2 % (37.0-47.0); HEMOGLOBIN 14.6 gm/dl (12.0-16.0); IMMATURE GRAN ABSOLUTE AUTO 0.04 K/mm3 (0.00-0.05); IMMATURE GRAN PERCENT AUTO 0.5 % (0.0-0.4); LYMPHOCYTES PERCENT AUTO 25.1 % (24.0-44.0); MEAN CORPUSCULAR HEMOGLOBIN 28.8 pg (28.0-32.0); MEAN CORPUSCULAR VOLUME 87.2 fl (83.0-99.0); MEAN PLATELET VOLUME 10.4 fl (9.4-12.3); MONOCYTES ABSOLUTE AUTO 1.1 K/mm3 (0.0-0.8); MONOCYTES PERCENT AUTO 13.2 % (0.0-8.0); NEUTROPHILS ABSOLUTE AUTO 4.8 K/mm3 (1.8-7.7); NEUTROPHILS PERCENT AUTO 59.6 % (41.0-71.0); PLATELET COUNT,PLT 378 K/mm3 (150-400); RED BLOOD CELL COUNT 5.07 M/mm3 (4.10-5.30); WHITE BLOOD CELL COUNT,WBC 7.97 K/mm3 (3.9-11.3)
[2023-01-17 06:25] LABS: A/G RATIO 0.9 (1-2); ALANINE AMINOTRANSFERASE,ALT 74 U/L (14-59); ALBUMIN 3.4 g/dl (3.4-5.0); ALKALINE PHOSPHATASE 87 U/L (46-116); ASPARTATE AMNIOTRANSFERASE,AST 35 U/L (15-37); BILIRUBIN TOTAL 0.6 mg/dL (0.2-1.0); BLOOD UREA NITROGEN,BUN 8 mg/dL (7-18); BUN/CREATININE RATIO 11.4 (14-18); C-REACTIVE PROTEIN <0.2 mg/dL (<1.0); CALCIUM 9.3 mg/dL (8.5-10.1); CHLORIDE,CL 103 mEq/L (98-107); CREATININE 0.7 mg/dL (0.55-1.02); EST CRCL DRUG DOSING (CG) 62.53 mL/min; ESTIMATED GFR 95 mL/min (>60); GLUCOSE RANDOM 110 mg/dL (70-99); MAGNESIUM 1.7 mg/dL (1.8-2.4); POTASSIUM,K 3.3 mEq/L (3.5-5.1); SODIUM,NA 139 mEq/L (136-145)
[2023-01-17 06:41] LABS: ANION GAP 14.3 (5-15); CARBON DIOXIDE,CO2 25 mEq/L (21-32)
[2023-01-17] MEDS ORDERED: Potassium Chloride 20 MEQ Tab.ER PO ONE (07:39)
[2023-01-17] MEDS ORDERED: HYDROmorphone 0.5 MG/0.5 ML Syringe IVPUSH ONE (07:40)
[2023-01-17 08:06] LABS: HEMOGLOBIN A1C 6.4 %
[2023-01-17] MEDS ORDERED: Succinylcholine 200 MG/10 ML MDV ONE (08:15)
[2023-01-17] MEDS ORDERED: fentaNYL 100 MCG/2 ML SDV ONE (08:17)
[2023-01-17] MEDS ORDERED: Etomidate 2 MG/ML 20 ML SDV IVPUSH ONE (08:18)
[2023-01-17] MEDS ORDERED: Propofol 200 MG/20 ML SDV ONE (08:20)
[2023-01-17] MEDS ORDERED: Metoclopramide 10 MG/2 ML SDV ONE (08:23)
[2023-01-17] MEDS ORDERED: Midazolam 1 MG/ML 2 ML SDV ONE (08:27)
[2023-01-17] MEDS ORDERED: Ondansetron 4 MG/2 ML SDV ONE (08:37)
[2023-01-17] MEDS ORDERED: Labetalol 100 MG/20 ML MDV ONE (08:40)
[2023-01-17] MEDS: Vancomycin 125 MG Cap PO SCH ×2 (10:47→13:28)
[2023-01-17] MEDS: Acetaminophen/oxyCODONE 325-5 MG Tab PO PRN (10:48)
[2023-01-17] MEDS: Potassium Chloride 10 MEQ in Premix Bag 1 BAG IV SCH ×3 (10:51→13:25)
[2023-01-17] MEDS ORDERED: Morphine 2 MG/ML SYRINGE IVPUSH ONE (11:27)
[2023-01-17] MEDS ORDERED: Ondansetron 4 MG/2 ML SDV IV PRN (11:37)
[2023-01-17] MEDS ORDERED: Lidocaine 1% 6 ML ONE (11:47)
[2023-01-17] MEDS: LORazepam 2 MG/ML SDV IVPUSH ONE ×2 (11:57→12:03)
[2023-01-17] MEDS: Ondansetron 8 MG in Sodium Chloride 0.9% 50 ML IV PRN ×2 (12:06→18:17)
[2023-01-17] MEDS ORDERED: LORazepam 2 MG/ML SDV IVPUSH ONE (12:15)
[2023-01-17] MEDS: Morphine 2 MG/ML SYRINGE IVPUSH PRN ×3 (12:31→22:00)
[2023-01-17] MEDS ORDERED: Magnesium Sulfate/Water 2 GM in Premix Bag 1 BAG IV ONE (13:00)
[2023-01-17] MEDS: amLODIPine 10 MG Tab PO SCH (14:24)
[2023-01-17] MEDS ORDERED: Sodium Chloride 0.9% 10 ML Syringe FLUSH PRN (15:29)
[2023-01-17] MEDS: Vancomycin 250 MG Cap PO SCH (17:16)
[2023-01-17] MEDS: atorvaSTATin 20 MG Tab PO SCH (22:10)
[2023-01-18] MEDS: Vancomycin 250 MG Cap PO SCH ×3 (01:37→16:43)
[2023-01-18] MEDS: Morphine 2 MG/ML SYRINGE IVPUSH PRN ×3 (01:42→19:58)
[2023-01-18] MEDS: metroNIDAZOLE 500 MG Tab PO SCH ×3 (04:36→20:02)
[2023-01-18] MEDS: Acetaminophen/oxyCODONE 325-5 MG Tab PO PRN ×3 (05:38→23:00)
[2023-01-18 05:54] LABS: BASOPHILS PERCENT AUTO 0.4 % (0.0-1.0); EOSINOPHILS ABSOLUTE AUTO 0.1 K/mm3 (0.0-0.4); EOSINOPHILS PERCENT AUTO 0.5 % (0.0-6.0); HEMATOCRIT 40.2 % (37.0-47.0); HEMOGLOBIN 13.2 gm/dl (12.0-16.0); IMMATURE GRAN ABSOLUTE AUTO 0.04 K/mm3 (0.00-0.05); IMMATURE GRAN PERCENT AUTO 0.4 % (0.0-0.4); LYMPHOCYTES ABSOLUTE AUTO 1.4 K/mm3 (1.0-4.8); LYMPHOCYTES PERCENT AUTO 12.6 % (24.0-44.0); MEAN CORPUSCULAR HEMOGLOBIN 29.3 pg (28.0-32.0); MEAN CORPUSCULAR HGB CONC 32.8 g/dl (32.0-36.0); MEAN CORPUSCULAR VOLUME 89.3 fl (83.0-99.0); MEAN PLATELET VOLUME 10.2 fl (9.4-12.3); MONOCYTES ABSOLUTE AUTO 1.1 K/mm3 (0.0-0.8); MONOCYTES PERCENT AUTO 9.9 % (0.0-8.0); NEUTROPHILS ABSOLUTE AUTO 8.4 K/mm3 (1.8-7.7); NEUTROPHILS PERCENT AUTO 76.2 % (41.0-71.0); PLATELET COUNT,PLT 344 K/mm3 (150-400); WHITE BLOOD CELL COUNT,WBC 11.03 K/mm3 (3.9-11.3)
[2023-01-18 06:19] LABS: A/G RATIO 0.9 (1-2); ANION GAP 11.4 (5-15); BILIRUBIN TOTAL 0.7 mg/dL (0.2-1.0); BUN/CREATININE RATIO 4.3 (14-18); C-REACTIVE PROTEIN 0.4 mg/dL (<1.0); CREATININE 0.7 mg/dL (0.55-1.02); EST CRCL DRUG DOSING (CG) 62.53 mL/min; POTASSIUM,K 3.4 mEq/L (3.5-5.1); PROTEIN TOTAL,TP 6.3 g/dl (6.4-8.2)
[2023-01-18] MEDS: amLODIPine 10 MG Tab PO SCH (08:53)
[2023-01-18] MEDS ORDERED: Morphine 2 MG/ML SYRINGE IV ONE (09:15)
[2023-01-18] MEDS: Famotidine 20 MG/2 ML SDV IVPUSH SCH ×2 (12:18→23:01)
[2023-01-18] MEDS: D5 1/2 NS w/ 20 mEq/L KCl 1,000 ML IV SCH ×2 (16:53→23:02)
[2023-01-18] MEDS: atorvaSTATin 20 MG Tab PO SCH (20:02)
[2023-01-19] MEDS: Vancomycin 250 MG Cap PO SCH ×2 (00:39→08:47)
[2023-01-19] MEDS: metroNIDAZOLE 500 MG Tab PO SCH (04:29)
[2023-01-19] MEDS: Acetaminophen/oxyCODONE 325-5 MG Tab PO PRN ×2 (04:32→10:17)
[2023-01-19 05:47] LABS: BASOPHILS PERCENT AUTO 0.5 % (0.0-1.0); EOSINOPHILS ABSOLUTE AUTO 0.1 K/mm3 (0.0-0.4); EOSINOPHILS PERCENT AUTO 1.3 % (0.0-6.0); HEMATOCRIT 39.7 % (37.0-47.0); HEMOGLOBIN 13.1 gm/dl (12.0-16.0); IMMATURE GRAN ABSOLUTE AUTO 0.03 K/mm3 (0.00-0.05); IMMATURE GRAN PERCENT AUTO 0.4 % (0.0-0.4); LYMPHOCYTES ABSOLUTE AUTO 1.7 K/mm3 (1.0-4.8); MEAN CORPUSCULAR HEMOGLOBIN 29.6 pg (28.0-32.0); MEAN CORPUSCULAR VOLUME 89.8 fl (83.0-99.0); MEAN PLATELET VOLUME 10.3 fl (9.4-12.3); MONOCYTES ABSOLUTE AUTO 0.9 K/mm3 (0.0-0.8); MONOCYTES PERCENT AUTO 11.4 % (0.0-8.0); NEUTROPHILS ABSOLUTE AUTO 5.2 K/mm3 (1.8-7.7); NEUTROPHILS PERCENT AUTO 65.4 % (41.0-71.0); PLATELET COUNT,PLT 340 K/mm3 (150-400); RED BLOOD CELL COUNT 4.42 M/mm3 (4.10-5.30)
[2023-01-19 06:16] LABS: A/G RATIO 0.9 (1-2); ALBUMIN 2.9 g/dl (3.4-5.0); ANION GAP 11.6 (5-15); BILIRUBIN TOTAL 0.6 mg/dL (0.2-1.0); BUN/CREATININE RATIO 11.4 (14-18); C-REACTIVE PROTEIN 0.5 mg/dL (<1.0); CALCIUM 8.8 mg/dL (8.5-10.1); CREATININE 0.7 mg/dL (0.55-1.02); EST CRCL DRUG DOSING (CG) 62.53 mL/min; POTASSIUM,K 3.6 mEq/L (3.5-5.1); PROTEIN TOTAL,TP 6.2 g/dl (6.4-8.2)
[2023-01-19] MEDS: amLODIPine 10 MG Tab PO SCH (08:48)
[2023-01-19] MEDS: Famotidine 20 MG/2 ML SDV IVPUSH SCH (10:19)
== END 2023-01-19 10:52 | disposition home or self-care (01) | DRG 372 ==
LOC: JD.ED 17:24 → JD.MS 01-16 01:02 → OBSVTOIN 01-17 11:46
PROVIDERS: ADMIT Pediatrics; ATTEND Internal Medicine
PROC: 0DBK8ZX Excision of Ascending Colon, Via Natural or Artificial Opening Endoscopic, Diagnostic (ICD-10-PCS; 2023-01-17)
PROC: 0DBL8ZX Excision of Transverse Colon, Via Natural or Artificial Opening Endoscopic, Diagnostic (ICD-10-PCS; 2023-01-17)
PROC: 0DBN8ZX Excision of Sigmoid Colon, Via Natural or Artificial Opening Endoscopic, Diagnostic (ICD-10-PCS; 2023-01-17)
PROC: 0DBP8ZX Excision of Rectum, Via Natural or Artificial Opening Endoscopic, Diagnostic (ICD-10-PCS; 2023-01-17)
PROC: 0DBH8ZX Excision of Cecum, Via Natural or Artificial Opening Endoscopic, Diagnostic (ICD-10-PCS; 2023-01-17)
PROC: 0DB68ZX Excision of Stomach, Via Natural or Artificial Opening Endoscopic, Diagnostic (ICD-10-PCS; principal; 2023-01-17 08:00)
PROC: 0DB38ZX Excision of Lower Esophagus, Via Natural or Artificial Opening Endoscopic, Diagnostic (ICD-10-PCS; 2023-01-17 08:00)
DX: A04.72 Enterocolitis due to Clostridium difficile, not specified as recurrent (principal); K56.7 Ileus, unspecified; K57.32 Diverticulitis of large intestine without perforation or abscess without bleeding; E86.0 Dehydration; I10 Essential (primary) hypertension; E78.00 Pure hypercholesterolemia, unspecified; Z96.652 Presence of left artificial knee joint; G89.29 Other chronic pain; M54.9 Dorsalgia, unspecified; K44.9 Diaphragmatic hernia without obstruction or gangrene; R73.9 Hyperglycemia, unspecified; M51.36 Other intervertebral disc degeneration, lumbar region; J44.9 Chronic obstructive pulmonary disease, unspecified; H91.90 Unspecified hearing loss, unspecified ear; M81.0 Age-related osteoporosis without current pathological fracture; J43.1 Panlobular emphysema; Z87.891 Personal history of nicotine dependence; Z79.899 Other long term (current) drug therapy; Z98.890 Other specified postprocedural states; Z87.01 Personal history of pneumonia (recurrent); Z86.16 Personal history of COVID-19
CPT/HCPCS: 00813; 36415; 74177; 74177-26; 76705; 76705-26; 80053; 81001; 82150; 83036; 83605; 83690; 83735; 84484; 85025; 85652; 86140; 87040; 93005; 93010; 94760; 94762; 99140; 99222; 99232; 99239; 99284; A9270-GY; J0330; J1170; J1885; J2060; J2250; J2270; J2405; J2704; J2765; J3010; J3475; J3480; J3490; J7030; J7042

== ENCOUNTER 2023-02-26 08:25 | Emergency (ER) | payer MEDICARE, OTHER ==
[2023-02-26] MEDS ORDERED: Ondansetron 4 MG in Sodium Chloride 0.9% 50 ML IV ONE (08:59)
[2023-02-26] MEDS ORDERED: Sodium Chloride 0.9% 1,000 ML IV STA (09:01)
[2023-02-26] MEDS ORDERED: Sodium Chloride 0.9% 10 ML Syringe FLUSH PRN ×3 (09:01→09:13)
[2023-02-26] MEDS ORDERED: HYDROmorphone 0.5 MG/0.5 ML Syringe IVPUSH ONE ×2 (09:02→10:19)
[2023-02-26] MEDS ORDERED: Iopamidol 612 MG/ML 100 ML Bottle IVPUSH ONE ×2 (09:09→09:13)
[2023-02-26] MEDS ORDERED: Ondansetron 4 MG/2 ML SDV IVPUSH ONE (09:15)
[2023-02-26 09:18] LABS: BASOPHILS ABSOLUTE AUTO 0.1 K/mm3 (0.0-0.2); BASOPHILS PERCENT AUTO 0.3 % (0.0-1.0); EOSINOPHILS PERCENT AUTO 0.1 % (0.0-6.0); HEMATOCRIT 46.4 % (37.0-47.0); HEMOGLOBIN 15.4 gm/dl (12.0-16.0); IMMATURE GRAN ABSOLUTE AUTO 0.05 K/mm3 (0.00-0.05); IMMATURE GRAN PERCENT AUTO 0.3 % (0.0-0.4); LYMPHOCYTES ABSOLUTE AUTO 1.4 K/mm3 (1.0-4.8); LYMPHOCYTES PERCENT AUTO 9.3 % (24.0-44.0); MEAN CORPUSCULAR HEMOGLOBIN 29.2 pg (28.0-32.0); MEAN CORPUSCULAR HGB CONC 33.2 g/dl (32.0-36.0); MEAN CORPUSCULAR VOLUME 87.9 fl (83.0-99.0); MEAN PLATELET VOLUME 11.6 fl (9.4-12.3); MONOCYTES ABSOLUTE AUTO 0.4 K/mm3 (0.0-0.8); MONOCYTES PERCENT AUTO 2.6 % (0.0-8.0); NEUTROPHILS ABSOLUTE AUTO 12.9 K/mm3 (1.8-7.7); NEUTROPHILS PERCENT AUTO 87.4 % (41.0-71.0); PLATELET COUNT,PLT 342 K/mm3 (150-400); RED BLOOD CELL COUNT 5.28 M/mm3 (4.10-5.30); WHITE BLOOD CELL COUNT,WBC 14.81 K/mm3 (3.9-11.3)
[2023-02-26 09:27] LABS: A/G RATIO 1.1 (1-2); ALANINE AMINOTRANSFERASE,ALT 30 U/L (14-59); ALBUMIN 4.1 g/dl (3.4-5.0); ALKALINE PHOSPHATASE 83 U/L (46-116); ANION GAP 15.2 (5-15); ASPARTATE AMNIOTRANSFERASE,AST 14 U/L (15-37); BILIRUBIN TOTAL 1.1 mg/dL (0.2-1.0); BLOOD UREA NITROGEN,BUN 14 mg/dL (7-18); BUN/CREATININE RATIO 17.5 (14-18); CALCIUM 9.4 mg/dL (8.5-10.1); CARBON DIOXIDE,CO2 27 mEq/L (21-32); CHLORIDE,CL 103 mEq/L (98-107); CREATININE 0.8 mg/dL (0.55-1.02); ESTIMATED GFR 81 mL/min (>60); GLUCOSE RANDOM 174 mg/dL (70-99); LIPASE 19 U/L (16-77); POTASSIUM,K 3.2 mEq/L (3.5-5.1); PROTEIN TOTAL,TP 7.8 g/dl (6.4-8.2); SODIUM,NA 142 mEq/L (136-145)
[2023-02-26 09:52] LABS: APPEARANCE,URINE CLEAR (Clear); BILIRUBIN,URINE NEGATIVE (Negative); COLOR,URINE YELLOW (Yellow); GLUCOSE,URINE NEGATIVE (Negative); KETONES,URINE 1+ (Negative); LEUKOCYTE ESTERASE,URINE NEGATIVE (Negative); NITRITE,URINE NEGATIVE (Negative); OCCULT BLOOD,URINE NEGATIVE (Negative); PH,URINE 8.5 (5.0-8.0); PROTEIN,URINE NEGATIVE (Negative); UROBILINOGEN,URINE 0.2 (0.2-1.0)
[2023-02-26 10:02] LABS: BACTERIA,URINE FEW /hpf (FEW); EPITHELIAL CELLS,URINE 0-5 /hpf (0-5); MUCUS,URINE RARE /hpf (FEW); RBC,URINE 0-5 /hpf (0-5); WBC,URINE 0-5 /hpf (0-5)
[2023-02-26] MEDS ORDERED: methylPREDNISolone Sodium Succinate 125 MG/2 ML SDV IVPUSH ONE (10:19)
== END 2023-02-26 11:53 | disposition home or self-care (01) ==
LOC: JD.ED 08:25
DX: K52.9 Noninfective gastroenteritis and colitis, unspecified (principal); I10 Essential (primary) hypertension; E78.00 Pure hypercholesterolemia, unspecified; J44.9 Chronic obstructive pulmonary disease, unspecified; Z86.16 Personal history of COVID-19; Z79.899 Other long term (current) drug therapy; Z87.891 Personal history of nicotine dependence
CPT/HCPCS: 36415; 74177; 80053; 81001; 83690; 85025; 96361; 96374; 96375; 96376; 99284; J1170; J2405; J2930; J3490; J7030; Q9967

== ENCOUNTER 2023-04-21 09:37 | Emergency (ER) | payer MEDICARE, OTHER ==
[2023-04-21 11:15] LABS: BASOPHILS PERCENT AUTO 0.2 % (0.0-1.0); EOSINOPHILS PERCENT AUTO 0.2 % (0.0-6.0); HEMATOCRIT 47.8 % (37.0-47.0); IMMATURE GRAN ABSOLUTE AUTO 0.03 K/mm3 (0.00-0.05); IMMATURE GRAN PERCENT AUTO 0.2 % (0.0-0.4); LYMPHOCYTES ABSOLUTE AUTO 1.4 K/mm3 (1.0-4.8); MEAN CORPUSCULAR HEMOGLOBIN 30.4 pg (28.0-32.0); MEAN CORPUSCULAR HGB CONC 35.6 g/dl (32.0-36.0); MEAN CORPUSCULAR VOLUME 85.4 fl (83.0-99.0); MEAN PLATELET VOLUME 11.4 fl (9.4-12.3); MONOCYTES ABSOLUTE AUTO 0.6 K/mm3 (0.0-0.8); MONOCYTES PERCENT AUTO 4.6 % (0.0-8.0); NEUTROPHILS ABSOLUTE AUTO 10.7 K/mm3 (1.8-7.7); NEUTROPHILS PERCENT AUTO 83.8 % (41.0-71.0); PLATELET COUNT,PLT 302 K/mm3 (150-400); WHITE BLOOD CELL COUNT,WBC 12.78 K/mm3 (3.9-11.3)
[2023-04-21 11:22] LABS: A/G RATIO 1.1 (1-2); ALANINE AMINOTRANSFERASE,ALT 34 U/L (14-59); ALBUMIN 4.1 g/dl (3.4-5.0); ALKALINE PHOSPHATASE 94 U/L (46-116); ANION GAP 18.1 (5-15); ASPARTATE AMNIOTRANSFERASE,AST 15 U/L (15-37); BILIRUBIN TOTAL 1.5 mg/dL (0.2-1.0); BLOOD UREA NITROGEN,BUN 25 mg/dL (7-18); BUN/CREATININE RATIO 27.8 (14-18); CARBON DIOXIDE,CO2 25 mEq/L (21-32); CHLORIDE,CL 97 mEq/L (98-107); CREATININE 0.9 mg/dL (0.55-1.02); ESTIMATED GFR 70 mL/min (>60); GLUCOSE RANDOM 128 mg/dL (70-99); LIPASE 12 U/L (16-77); POTASSIUM,K 3.1 mEq/L (3.5-5.1); PROTEIN TOTAL,TP 7.8 g/dl (6.4-8.2); SODIUM,NA 137 mEq/L (136-145)
[2023-04-21] MEDS: Ondansetron 4 MG/2 ML SDV IVPUSH ONE (11:22)
[2023-04-21] MEDS: HYDROmorphone 0.5 MG/0.5 ML Syringe IVPUSH ONE (11:24)
[2023-04-21] MEDS: Pantoprazole 40 MG Vial IVPUSH ONE (11:27)
[2023-04-21] MEDS: Sodium Chloride 0.9% 10 ML Syringe FLUSH ONE (11:30)
[2023-04-21] MEDS: Sodium Chloride 0.9% 1,000 ML IV STA (11:30)
[2023-04-21] MEDS: Iopamidol 612 MG/ML 100 ML Bottle IVPUSH ONE (11:47)
[2023-04-21] MEDS: Sodium Chloride 0.9% 10 ML Syringe FLUSH PRN (11:47)
[2023-04-21 13:01] LABS: APPEARANCE,URINE CLEAR (Clear); BILIRUBIN,URINE NEGATIVE (Negative); COLOR,URINE YELLOW (Yellow); GLUCOSE,URINE NEGATIVE (Negative); KETONES,URINE TRACE (Negative); LEUKOCYTE ESTERASE,URINE TRACE (Negative); NITRITE,URINE NEGATIVE (Negative); OCCULT BLOOD,URINE NEGATIVE (Negative); PROTEIN,URINE TRACE (Negative); UROBILINOGEN,URINE 0.2 (0.2-1.0)
[2023-04-21 13:09] LABS: BACTERIA,URINE FEW /hpf (FEW); MUCUS,URINE FEW /hpf (FEW)
[2023-04-21] MEDS: HYDROmorphone 1 MG/ML Syringe IVPUSH ONE (14:31)
== END 2023-04-21 14:55 | disposition home or self-care (01) ==
LOC: JD.ED 09:37
DX: R10.13 Epigastric pain (principal); I10 Essential (primary) hypertension; E78.00 Pure hypercholesterolemia, unspecified; J44.9 Chronic obstructive pulmonary disease, unspecified; Z86.16 Personal history of COVID-19; Z87.891 Personal history of nicotine dependence; Z79.899 Other long term (current) drug therapy
CPT/HCPCS: 36415; 74177; 80053; 81001; 83690; 85025; 96361; 96374; 96375; 96376; 99284; C9113; J1170; J2405; J3490; J7030; Q9967

== ENCOUNTER 2023-06-17 15:13 | Emergency (ER) | payer MEDICARE, OTHER ==
[2023-06-17] MEDS: HYDROmorphone 0.5 MG/0.5 ML Syringe IVPUSH ONE (16:18)
[2023-06-17] MEDS: Sodium Chloride 0.9% 1,000 ML IV STA ×2 (16:19→17:56)
[2023-06-17] MEDS: Sodium Chloride 0.9% 10 ML Syringe FLUSH PRN ×2 (16:19→16:44)
[2023-06-17] MEDS: Ondansetron 4 MG/2 ML SDV IVPUSH ONE (16:19)
[2023-06-17 16:24] LABS: BASOPHILS ABSOLUTE AUTO 0.1 K/mm3 (0.0-0.2); BASOPHILS PERCENT AUTO 0.4 % (0.0-1.0); EOSINOPHILS PERCENT AUTO 0.2 % (0.0-6.0); IMMATURE GRAN ABSOLUTE AUTO 0.07 K/mm3 (0.00-0.05); IMMATURE GRAN PERCENT AUTO 0.4 % (0.0-0.4); LYMPHOCYTES ABSOLUTE AUTO 1.9 K/mm3 (1.0-4.8); LYMPHOCYTES PERCENT AUTO 11.6 % (24.0-44.0); MEAN CORPUSCULAR HEMOGLOBIN 29.5 pg (28.0-32.0); MEAN CORPUSCULAR VOLUME 86.7 fl (83.0-99.0); MEAN PLATELET VOLUME 11.6 fl (9.4-12.3); MONOCYTES ABSOLUTE AUTO 0.7 K/mm3 (0.0-0.8); MONOCYTES PERCENT AUTO 4.6 % (0.0-8.0); NEUTROPHILS ABSOLUTE AUTO 13.3 K/mm3 (1.8-7.7); NEUTROPHILS PERCENT AUTO 82.8 % (41.0-71.0); PLATELET COUNT,PLT 286 K/mm3 (150-400); RED BLOOD CELL COUNT 5.42 M/mm3 (4.10-5.30); WHITE BLOOD CELL COUNT,WBC 16.03 K/mm3 (3.9-11.3)
[2023-06-17 16:29] LABS: A/G RATIO 1.2 (1-2); ALBUMIN 4.1 g/dl (3.4-5.0); BILIRUBIN TOTAL 1.2 mg/dL (0.2-1.0); BUN/CREATININE RATIO 27.5 (14-18); C-REACTIVE PROTEIN 0.06 mg/dL (<0.30); CALCIUM 10.3 mg/dL (8.5-10.1); CREATININE 0.8 mg/dL (0.55-1.02); EST CRCL DRUG DOSING (CG) 53.97 mL/min; PROTEIN TOTAL,TP 7.5 g/dl (6.4-8.2)
[2023-06-17] MEDS ORDERED: Sodium Chloride 0.9% 1,000 ML IV STA (16:36)
[2023-06-17] MEDS: Iopamidol 612 MG/ML 100 ML Bottle IVPUSH ONE (16:44)
[2023-06-17 17:25] LABS: APPEARANCE,URINE CLEAR (Clear); BILIRUBIN,URINE NEGATIVE (Negative); COLOR,URINE YELLOW (Yellow); GLUCOSE,URINE NEGATIVE (Negative); KETONES,URINE 2+ (Negative); LEUKOCYTE ESTERASE,URINE TRACE (Negative); NITRITE,URINE NEGATIVE (Negative); OCCULT BLOOD,URINE NEGATIVE (Negative); PROTEIN,URINE 1+ (Negative); UROBILINOGEN,URINE 0.2 (0.2-1.0)
[2023-06-17 17:36] LABS: BACTERIA,URINE FEW /hpf (FEW); MUCUS,URINE MODERATE /hpf (FEW); RBC,URINE 0-5 /hpf (0-5); SQUAMOUS EPITHELIAL CELLS,UR 0-5 /hpf (0-5)
[2023-06-17] MEDS: Alum Hydrox/Mag Hydrox/Simeth 30 ML, Lidocaine 2% 15 ML PO ONE (19:26)
[2023-06-17] MEDS: Sucralfate Suspension 1 GM/10 ML Cup PO ONE (20:18)
[2023-06-17] MEDS: Potassium Chloride 20 MEQ Tab.ER PO ONE (20:18)
[2023-06-17] MEDS: Famotidine 20 MG/2 ML SDV IVPUSH ONE (20:19)
[2023-06-17] MEDS: Pantoprazole 40 MG Vial IVPUSH ONE (20:19)
== END 2023-06-17 20:27 | disposition home or self-care (01) ==
LOC: JD.ED 15:13
DX: R10.12 Left upper quadrant pain (principal); R10.32 Left lower quadrant pain; R11.2 Nausea with vomiting, unspecified; E87.6 Hypokalemia; E78.00 Pure hypercholesterolemia, unspecified; I10 Essential (primary) hypertension; J44.9 Chronic obstructive pulmonary disease, unspecified; Z86.16 Personal history of COVID-19; Z79.899 Other long term (current) drug therapy
CPT/HCPCS: 36415; 74177; 74177-26; 80053; 81001; 83690; 85025; 86140; 96361; 96374; 96375; 99283; 99285-25; A9270-GY; C9113; J1170; J2405; J3490; J7030; Q9967

== ENCOUNTER 2023-07-01 07:51 | Emergency (ER) | payer MEDICARE, OTHER ==
[2023-07-01] MEDS: Ondansetron 4 MG/2 ML SDV IVPUSH ONE ×2 (08:41→09:59)
[2023-07-01] MEDS: Sodium Chloride 0.9% 1,000 ML IV STA (08:41)
[2023-07-01] MEDS: HYDROmorphone 0.5 MG/0.5 ML Syringe IVPUSH ONE ×2 (08:43→10:59)
[2023-07-01] MEDS: Pantoprazole 40 MG Vial IVPUSH ONE (08:44)
[2023-07-01] MEDS: Famotidine 20 MG/2 ML SDV IVPUSH ONE ×2 (08:48→09:02)
[2023-07-01] MEDS: Ketorolac 30 MG/ML SDV IVPUSH ONE ×2 (08:48→09:01)
[2023-07-01 08:53] LABS: BASOPHILS ABSOLUTE AUTO 0.1 K/mm3 (0.0-0.2); BASOPHILS PERCENT AUTO 0.4 % (0.0-1.0); EOSINOPHILS PERCENT AUTO 0.3 % (0.0-6.0); HEMATOCRIT 47.8 % (37.0-47.0); HEMOGLOBIN 16.1 gm/dl (12.0-16.0); IMMATURE GRAN ABSOLUTE AUTO 0.05 K/mm3 (0.00-0.05); IMMATURE GRAN PERCENT AUTO 0.4 % (0.0-0.4); LYMPHOCYTES PERCENT AUTO 13.8 % (24.0-44.0); MEAN CORPUSCULAR HGB CONC 33.7 g/dl (32.0-36.0); MEAN CORPUSCULAR VOLUME 86.1 fl (83.0-99.0); MEAN PLATELET VOLUME 11.5 fl (9.4-12.3); MONOCYTES ABSOLUTE AUTO 0.6 K/mm3 (0.0-0.8); MONOCYTES PERCENT AUTO 4.5 % (0.0-8.0); NEUTROPHILS ABSOLUTE AUTO 11.5 K/mm3 (1.8-7.7); NEUTROPHILS PERCENT AUTO 80.6 % (41.0-71.0); RED BLOOD CELL COUNT 5.55 M/mm3 (4.10-5.30); WHITE BLOOD CELL COUNT,WBC 14.28 K/mm3 (3.9-11.3)
[2023-07-01 08:55] LABS: PLATELET COUNT,PLT 408 K/mm3 (150-400)
[2023-07-01 09:02] LABS: A/G RATIO 1.2 (1-2); ALBUMIN 4.4 g/dl (3.4-5.0); ANION GAP 17.5 (5-15); BILIRUBIN TOTAL 1.3 mg/dL (0.2-1.0); BUN/CREATININE RATIO 22.9 (14-18); C-REACTIVE PROTEIN 0.05 mg/dL (<0.30); CREATININE 0.7 mg/dL (0.55-1.02); EST CRCL DRUG DOSING (CG) 58.85 mL/min; POTASSIUM,K 3.5 mEq/L (3.5-5.1)
[2023-07-01] MEDS: Iopamidol 612 MG/ML 100 ML Bottle IVPUSH ONE (09:05)
[2023-07-01] MEDS: Iopamidol 612 MG/ML 30 ML SDV IVPUSH ONE (09:14)
[2023-07-01] MEDS: Sodium Chloride 0.9% 10 ML Syringe FLUSH ONE (09:15)
[2023-07-01] MEDS: Alum Hydrox/Mag Hydrox/Simeth 30 ML, Lidocaine 2% 15 ML PO ONE (10:01)
[2023-07-01 10:24] LABS: APPEARANCE,URINE CLEAR (Clear); BILIRUBIN,URINE NEGATIVE (Negative); COLOR,URINE LIGHT YELLOW (Yellow); GLUCOSE,URINE NEGATIVE (Negative); KETONES,URINE NEGATIVE (Negative); LEUKOCYTE ESTERASE,URINE NEGATIVE (Negative); NITRITE,URINE NEGATIVE (Negative); OCCULT BLOOD,URINE NEGATIVE (Negative); PH,URINE 8.5 (5.0-8.0); PROTEIN,URINE 1+ (Negative); UROBILINOGEN,URINE 0.2 (0.2-1.0)
[2023-07-01 10:35] LABS: BACTERIA,URINE RARE /hpf (FEW); EPITHELIAL CELLS,URINE 0-5 /hpf (0-5); MUCUS,URINE FEW /hpf (FEW); RBC,URINE 0-5 /hpf (0-5); WBC,URINE 0-5 /hpf (0-5)
[2023-07-01] MEDS: Dicyclomine 20 MG/2 ML SDV IM ONE (10:59)
[2023-07-01] MEDS: Sodium Chloride 0.9% 10 ML Syringe FLUSH PRN (11:00)
[2023-07-01] MEDS: Metoclopramide 10 MG/2 ML SDV IVPUSH ONE (11:18)
[2023-07-01] MEDS: Acetaminophen/oxyCODONE 325-5 MG Tab PO ONE (12:09)
== END 2023-07-01 12:19 | disposition home or self-care (01) ==
LOC: JD.ED 07:51
DX: R10.13 Epigastric pain (principal); R11.2 Nausea with vomiting, unspecified; I10 Essential (primary) hypertension; E78.00 Pure hypercholesterolemia, unspecified; J44.9 Chronic obstructive pulmonary disease, unspecified; Z86.16 Personal history of COVID-19; Z79.51 Long term (current) use of inhaled steroids; Z79.899 Other long term (current) drug therapy
CPT/HCPCS: 36415; 74177; 80053; 81001; 83690; 85025; 86140; 96361; 96372; 96374; 96375; 96376; 99284; A9270; C9113; J0500; J1170; J1885; J2405; J2765; J3490; J7030; Q9967

== ENCOUNTER 2023-07-21 18:17 | Emergency (ER) | payer MEDICARE, OTHER ==
[2023-07-21 19:25] LABS: BASOPHILS PERCENT AUTO 0.4 % (0.0-1.0); HEMATOCRIT 43.4 % (37.0-47.0); HEMOGLOBIN 14.9 gm/dl (12.0-16.0); IMMATURE GRAN ABSOLUTE AUTO 0.03 K/mm3 (0.00-0.05); IMMATURE GRAN PERCENT AUTO 0.3 % (0.0-0.4); LYMPHOCYTES PERCENT AUTO 9.3 % (24.0-44.0); MEAN CORPUSCULAR HEMOGLOBIN 29.1 pg (28.0-32.0); MEAN CORPUSCULAR HGB CONC 34.3 g/dl (32.0-36.0); MEAN CORPUSCULAR VOLUME 84.8 fl (83.0-99.0); MEAN PLATELET VOLUME 11.5 fl (9.4-12.3); MONOCYTES ABSOLUTE AUTO 0.3 K/mm3 (0.0-0.8); MONOCYTES PERCENT AUTO 3.2 % (0.0-8.0); NEUTROPHILS ABSOLUTE AUTO 8.9 K/mm3 (1.8-7.7); NEUTROPHILS PERCENT AUTO 86.8 % (41.0-71.0); PLATELET COUNT,PLT 316 K/mm3 (150-400); RED BLOOD CELL COUNT 5.12 M/mm3 (4.10-5.30)
[2023-07-21] MEDS: Pantoprazole 40 MG Vial IVPUSH ONE (19:26)
[2023-07-21] MEDS: Sodium Chloride 0.9% 1,000 ML IV SCH ×2 (19:26→20:45)
[2023-07-21] MEDS: Prochlorperazine 10 MG/2 ML SDV IVPUSH ONE (19:27)
[2023-07-21] MEDS: HYDROmorphone 0.5 MG/0.5 ML Syringe IVPUSH ONE (19:27)
[2023-07-21 19:37] LABS: A/G RATIO 1.2 (1-2); ALBUMIN 4.1 g/dl (3.4-5.0); ANION GAP 17.9 (5-15); BILIRUBIN TOTAL 1.7 mg/dL (0.2-1.0); BUN/CREATININE RATIO 12.5 (14-18); CALCIUM 9.8 mg/dL (8.5-10.1); CREATININE 0.8 mg/dL (0.55-1.02); EST CRCL DRUG DOSING (CG) 53.97 mL/min; MAGNESIUM 1.6 mg/dL (1.8-2.4); POTASSIUM,K 2.9 mEq/L (3.5-5.1); PROTEIN TOTAL,TP 7.4 g/dl (6.4-8.2)
[2023-07-21] MEDS: Sodium Chloride 0.9% 10 ML Syringe FLUSH PRN (19:53)
[2023-07-21] MEDS: Iopamidol 612 MG/ML 100 ML Bottle IVPUSH ONE (19:53)
[2023-07-21 20:28] LABS: APPEARANCE,URINE SLT CLOUDY (Clear); BILIRUBIN,URINE NEGATIVE (Negative); COLOR,URINE YELLOW (Yellow); GLUCOSE,URINE NEGATIVE (Negative); KETONES,URINE 3+ (Negative); LEUKOCYTE ESTERASE,URINE 1+ (Negative); NITRITE,URINE NEGATIVE (Negative); OCCULT BLOOD,URINE NEGATIVE (Negative); PH,URINE 8.5 (5.0-8.0); PROTEIN,URINE 2+ (Negative); UROBILINOGEN,URINE 0.2 (0.2-1.0)
[2023-07-21] MEDS: Magnesium Sulfate/Water 2 GM in Premix Bag 1 BAG IV ONE (20:44)
[2023-07-21] MEDS: Potassium Chloride 10 MEQ in Premix Bag 1 BAG IV SCH (20:45)
[2023-07-21 21:04] LABS: BACTERIA,URINE MODERATE /hpf (FEW); MUCUS,URINE FEW /hpf (FEW); RBC,URINE 0-5 /hpf (0-5)
[2023-07-21] MEDS: Sucralfate Suspension 1 GM/10 ML Cup PO ONE (21:14)
[2023-07-21] MEDS: Pantoprazole 40 MG Tab.CR PO ONE (21:53)
[2023-07-21] MEDS: Potassium Chloride 20 MEQ Tab.ER PO ONE (21:55)
== END 2023-07-21 22:23 | disposition home or self-care (01) ==
LOC: JD.ED 18:17
DX: K21.9 Gastro-esophageal reflux disease without esophagitis (principal); E87.6 Hypokalemia; I10 Essential (primary) hypertension; E78.00 Pure hypercholesterolemia, unspecified; J44.9 Chronic obstructive pulmonary disease, unspecified; Z86.16 Personal history of COVID-19; Z79.899 Other long term (current) drug therapy
CPT/HCPCS: 36415; 74177; 80053; 81001; 81003; 83690; 83735; 85025; 87086; 96361; 96365; 96375; 99284; A9270; C9113; J0780; J1170; J3475; J3480; J3490; J7030; Q9967

== ENCOUNTER 2023-11-29 07:53 | Emergency (ER) | payer MEDICARE, OTHER ==
[2023-11-29 08:43] LABS: BASOPHILS ABSOLUTE AUTO 0.1 K/mm3 (0.0-0.2); BASOPHILS PERCENT AUTO 0.5 % (0.0-1.0); EOSINOPHILS PERCENT AUTO 0.1 % (0.0-6.0); HEMATOCRIT 49.8 % (37.0-47.0); IMMATURE GRAN ABSOLUTE AUTO 0.03 K/mm3 (0.00-0.05); IMMATURE GRAN PERCENT AUTO 0.2 % (0.0-0.4); LYMPHOCYTES ABSOLUTE AUTO 2.1 K/mm3 (1.0-4.8); LYMPHOCYTES PERCENT AUTO 15.9 % (24.0-44.0); MEAN CORPUSCULAR HEMOGLOBIN 29.4 pg (28.0-32.0); MEAN CORPUSCULAR HGB CONC 34.1 g/dl (32.0-36.0); MEAN PLATELET VOLUME 10.9 fl (9.4-12.3); MONOCYTES ABSOLUTE AUTO 0.8 K/mm3 (0.0-0.8); MONOCYTES PERCENT AUTO 6.1 % (0.0-8.0); NEUTROPHILS ABSOLUTE AUTO 10.1 K/mm3 (1.8-7.7); NEUTROPHILS PERCENT AUTO 77.2 % (41.0-71.0); PLATELET COUNT,PLT 433 K/mm3 (150-400); RED BLOOD CELL COUNT 5.79 M/mm3 (4.10-5.30); WHITE BLOOD CELL COUNT,WBC 13.01 K/mm3 (3.9-11.3)
[2023-11-29] MEDS: Sodium Chloride 0.9% 500 ML IV SCH (08:47)
[2023-11-29] MEDS: Sodium Chloride 0.9% 10 ML Syringe FLUSH PRN (08:48)
[2023-11-29] MEDS: HYDROmorphone 0.5 MG/0.5 ML Syringe IVPUSH PRN (08:48)
[2023-11-29] MEDS: Ondansetron 4 MG/2 ML SDV IVPUSH ONE (08:48)
[2023-11-29 08:52] LABS: A/G RATIO 1.1 (1-2); ALBUMIN 4.5 g/dl (3.4-5.0); ANION GAP 19.9 (5-15); BILIRUBIN TOTAL 1.5 mg/dL (0.2-1.0); CALCIUM 10.4 mg/dL (8.5-10.1); EST CRCL DRUG DOSING (CG) 43.18 mL/min; POTASSIUM,K 2.9 mEq/L (3.5-5.1); PROTEIN TOTAL,TP 8.6 g/dl (6.4-8.2)
[2023-11-29 08:55] LABS: INR 0.97; PROTHROMBIN TIME 10.3 SECONDS (9.7-12.0)
[2023-11-29] MEDS ORDERED: Iopamidol 612 MG/ML 100 ML Bottle IVPUSH ONE (09:38)
[2023-11-29] MEDS: Iopamidol 612 MG/ML 100 ML Bottle IVPUSH ONE (09:39)
[2023-11-29] MEDS: metroNIDAZOLE 500 MG Tab PO ONE (10:46)
[2023-11-29] MEDS: Potassium Chloride 20 MEQ Tab.ER PO ONE (10:46)
[2023-11-29] MEDS: Cephalexin 500 MG Cap PO ONE (10:46)
== END 2023-11-29 10:58 | disposition home or self-care (01) ==
LOC: JD.ED 07:53
DX: K52.9 Noninfective gastroenteritis and colitis, unspecified (principal); R10.10 Upper abdominal pain, unspecified; E78.00 Pure hypercholesterolemia, unspecified; I10 Essential (primary) hypertension; J44.9 Chronic obstructive pulmonary disease, unspecified; Z86.16 Personal history of COVID-19; Z79.899 Other long term (current) drug therapy
CPT/HCPCS: 36415; 74177; 80053; 82150; 83690; 85025; 85610; 96361; 96374; 96375; 99284; A9270; J1170; J2405; J3490; J7030; Q9967